=== PATIENT | male | born 1960 | race Caucasian/White ===

== ENCOUNTER 2016-11-18 22:57 | Emergency (ER) | payer BC ==
[~2016-11-18] VITALS: Ht 188 cm; Wt 107.6 kg
[~2016-11-18 22:57] MED LIST: DIOVAN160 MG PO; MULTIVITAMIN1 EAC1 PO; OMEGA 3 1,0001 EACH PO
[2016-11-18 23:38] LABS: HEMATOCRIT 52.9 % (38.0-50.0); MCH 31.7 PG (29.0-34.0); MCHC 35.9 G/DL (30.0-36.0); MCV 88.3 FL (86-99); MEAN PLAT.VOLUME 9.3 uM^3 (9.0-12.4); PLATELET COUNT 423 K/uL (156-360); RBC DIS.WIDTH-CV 13.9 % (11.8-14.6); RBC DIS.WIDTH-SD 44.8 % (39-53); RED BLOOD COUNT 5.99 M/uL (4.00-5.50)
[2016-11-18 23:48] LABS: CHLORIDE 103 mEq/L (99-109); POTASSIUM 3.5 mEq/L (3.7-5.4); SODIUM 138 mEq/L (136-147)
[2016-11-18 23:50] LABS: GLUCOSE 108 mg/dL (70-99)
[2016-11-18 23:51] LABS: ANION GAP 11 MEQ/L (2-14)
[2016-11-18 23:54] LABS: CARBON DIOXIDE (BICARBONATE) 27.6 MEQ/L (20-31); GFR ESTIMATE (CALCULATED) > 59 mL/min/; UREA NITROGEN (BUN) 15 mg/dL (9-23)
[2016-11-19] LABS: TROP-I INTERPRETATION NEGATIVE; TROPONIN-I < 0.01 ng/mL (0.0-0.30)
[2016-11-19 00:05] LABS: D-DIMER ELISA 0.51 mg/L FEU (< 0.57)
[2016-11-19 01:59] LABS: TROP-I INTERPRETATION NEGATIVE; TROPONIN-I < 0.01 ng/mL (0.0-0.30)
[2016-11-19] MEDS ORDERED: PROVENTIL HFA6.7 GM IH (02:06)
[2016-11-19] MEDS ORDERED: PREDNISONE20 MG PO (02:08)
[2016-11-19 02:34] VITALS: BP 114/74
== END 2016-11-19 02:36 | disposition home or self-care (01) ==
LOC: EXP 22:57 → EME 22:57 → EXP 11-19 02:36
PROVIDERS: Emergency Medicine
DX: R07.9 Chest pain, unspecified (principal); R06.00 Dyspnea, unspecified; J45.909 Unspecified asthma, uncomplicated; I10 Essential (primary) hypertension
CPT/HCPCS: 71020; 71275; 80048; 82803; 83605; 84484; 85027; 85379; 93005; 94640; 99281; 99285